=== PATIENT | female | born 2005 | race Caucasian/White ===

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

== ENCOUNTER → 2023-01-07 | Outpatient (CLI) | payer OTHER | LOC: COL.RAD 09:33 | DX: K30 Functional dyspepsia (principal) | CPT/HCPCS: A9537-JZ; J2805 ==

== ENCOUNTER 2023-02-16 18:50 | Emergency (ER) | payer BC ==
[~2023-02-16] VITALS: Ht 157.5 cm; Wt 43.2 kg
[2023-02-16 18:57] VITALS: TEMP 98.4
[2023-02-16 19:43] LABS: BASO # 0.1 K/mm3 (0.0-0.2); EOS # 0.5 K/mm3 (0.0-0.7); EOS % 6.9 % (0.0-4.0); GRAN # 3.3 K/mm3 (1.4-6.5); GRAN % 48.8 % (42.2-75.2); HEMATOCRIT 37.6 % (35.0-45.0); HEMOGLOBIN 12.4 g/dl (12.0-15.0); LYMPH # 2.4 K/mm3 (1.2-3.4); LYMPH % 34.9 % (20.0-51.0); MEAN CELL VOLUME 88 fl (80.0-95.0); MEAN CORPUSCULAR HEMOGLOBIN 29 pg (26-32); MEAN CORPUSCULAR HGB CONC 33 g/dl (33.0-37.0); MONO # 0.5 K/mm3 (0.1-0.6); PLATELET COUNT 274 K/mm3 (130-400); RED BLOOD COUNT 4.28 M/mm3 (4.10-5.30); REDCELL DISTRIBUTION WIDTH-CV 15.5 % (11.5-14.5)
[2023-02-16 20:10] LABS: ALBUMIN 3.8 gm/dL (3.5-5.0); BILIRUBIN,TOTAL 0.3 mg/dL (0.2-1.2); CALCIUM 9.9 mg/dL (8.4-10.2); CREATININE, serum 0.75 mg/dL (0.57-1.11); POTASSIUM 3.7 mmol/L (3.5-4.5); TOTAL PROTEIN 6.9 gm/dL (6.2-8.1)
[2023-02-16] MEDS ORDERED: PROTONIX 40MG T40 MG PO (21:16)
[2023-02-16] MEDS ORDERED: PHENERGAN 25 TA25 MG PO (21:16)
[2023-02-16] MEDS ORDERED: NORCO 325 MG-51 TAB PO (21:16)
[2023-02-16 21:51] VITALS: BP 102/74; PULSE 82
== END 2023-02-16 22:06 | disposition home or self-care (01) ==
LOC: COL.ER 18:50
PROVIDERS: Personal Emergency Response Attendant
DX: R10.13 Epigastric pain (principal); R11.2 Nausea with vomiting, unspecified; Z90.49 Acquired absence of other specified parts of digestive tract
CPT/HCPCS: C9113; J0780; J1790; J3010; J7030